=== PATIENT | female | born 1950 | race Caucasian/White ===

== ENCOUNTER → 2017-04-22 | Outpatient (CLI) | payer MEDICARE ==
--- NOTE | 2017-04-22 18:44 | PCVCIMAG ---
APPROVED REPORT Study performed: 04/22/2017 11:17:36 EXAM: Comprehensive 2D, Doppler, and color-flow Echocardiogram Patient Location: Echo lab Status: routine BSA: 1.98 HR: 73 bpmBP: 176/90 mmHg Rhythm: NSR Other Information Study Quality: Adequate Risk Factors: Cardiac Risk Factors: HTN Indications Palpitations 2D Dimensions LVEF(%): 45.99 (>50%) IVSd: 12.35 (7-11mm) LVDd: 44.44 mm PWd: 11.18 (7-11mm) LVDs: 34.31 (25-40mm) Left Atrium: 41.92 (27-40mm) Aortic Root: 35.31 mm LV Single Plane 4CH: 60.36 % LV Single Plane 2CH: 64.13 %Sher's LVEF: 62.24 % Biplane EF: 63.3 % Volumes Left Atrial Volume (Systole) Single Plane 4CH: 76.89 mLSingle Plane 2CH: 84.20 mL LA ESV Index: 42.00 mL/m2 Aortic Valve AoV Peak Esteban.: 1.42 m/s AO Peak Gr.: 8.04 mmHgLVOT Max P.64 mmHg LVOT Max V: 1.08 m/s AI Vmax: 4.90 m/s AI [place]: 2.17 m/s2 AI PHT: 655.13 ms Mitral Valve E/A Ratio: 0.9 MV Decel. Time: 293.23 ms MV E Max Esteban.: 0.57 m/s MV A Esteban.: 0.67 m/s IVRT: 121.11 ms Pulmonary Valve PV Peak Esteban.: 0.90 m/sPV Peak Gr.: 3.22 mmHg Pulmonary Vein P Vein S: 0.24 m/sP Vein A: 0.32 m/s P Vein D: 0.30 m/sP Vein A Dur.: 124.6 msec P Vein S/D Ratio: 0.80 Tricuspid Valve TR Peak Esteban.: 2.79 m/s TR Peak Gr.: 31.08 mmHg Left Ventricle The left ventricle is normal size. There is normal LV segmental wall motion. There is normal left ventricular wall thickness. Left ventricular systolic function is normal. The left ventricular ejection fraction is within the normal range. LVEF is 60-65%. Grade I - abnormal relaxation pattern. Right Ventricle The right ventricle is normal size. The right ventricular systolic function is normal. Atria The left atrium size is normal. The right atrium size is normal. Aortic Valve The aortic valve is normal in structure. Mild aortic regurgitation. There is no aortic valvular stenosis. Mitral Valve The mitral valve is normal in structure. There is no mitral valve regurgitation noted. No evidence of mitral valve stenosis. Tricuspid Valve The tricuspid valve is normal in structure. Mild tricuspid regurgitation with PAP of 38 mmHg. Pulmonic Valve The pulmonary valve is normal in structure. There is trace pulmonic valvular regurgitation. Great Vessels The aortic root is normal in size. IVC is normal in size and collapses with >50% inspiration Pericardium There is no pericardial effusion. <Conclusion> Left ventricular systolic function is normal. The left ventricular ejection fraction is within the normal range. LVEF is 60-65%. Grade I - abnormal relaxation pattern. The right ventricle is normal size. The left atrium size is normal. There is no aortic valvular stenosis. The mitral valve is normal in structure. Mild tricuspid regurgitation with PAP of 38 mmHg. There is no pericardial effusion.
== END | disposition home or self-care (01) ==
LOC: PCVCIMAG 10:59
PROVIDERS: ATTEND Internal Medicine Cardiovascular Disease
DX: I08.2 Rheumatic disorders of both aortic and tricuspid valves (principal); I10 Essential (primary) hypertension; E87.6 Hypokalemia; E78.5 Hyperlipidemia, unspecified; Z90.710 Acquired absence of both cervix and uterus; Z90.11 Acquired absence of right breast and nipple; Z88.2 Allergy status to sulfonamides
CPT/HCPCS: 36415; 80061; 93005; 93306; G0463

== ENCOUNTER → 2017-05-15 | Outpatient (CLI) | payer MEDICARE ==
--- NOTE | 2017-05-15 16:39 | PCVCIMAG ---
EXAM: BILATERAL RENAL ULTRASOUND AND BILATERAL RENAL DUPLEX INDICATION: Hypertension FINDINGS: Right kidney: Length measures 10.8 cm. No hydronephrosis or extensive renal scarring. Right renal duplex: Adequate technical quality. No sonographic evidence of renal artery stenosis. The aortic to renal artery ratio is 2.8. The renal vein is patent. Left kidney: Length measures 10.9 cm. No hydronephrosis or extensive renal scarring. Left renal duplex: Adequate technical quality. No sonographic evidence of renal artery stenosis. The aortic to renal artery ratio is 3.4. The renal vein is patent. Bladder: No obvious abnormalities. IMPRESSION: No significant renal artery stenosis. No hydronephrosis bilaterally. LOC:[id number]
== END | disposition home or self-care (01) ==
LOC: PCVCIMAG 10:21
PROVIDERS: ATTEND Internal Medicine Cardiovascular Disease
DX: I10 Essential (primary) hypertension (principal); E78.5 Hyperlipidemia, unspecified
CPT/HCPCS: 76770; 93975